=== PATIENT | male | born 1940 | race Caucasian/White ===

== ENCOUNTER 2019-02-26 06:52 | Inpatient (IN) | payer MEDICARE ==
[2019-02-26 07:35] LABS: HEMATOCRIT 36.8 % (37.9-51.0); HEMOGLOBIN 12.6 g/dL (13.5-17.0); MEAN CORPUSCULAR HEMOGLOBIN 30.4 pg (27.0-33.4); MEAN CORPUSCULAR HGB CONC 34.1 g/dL (32.0-36.0); MEAN CORPUSCULAR VOLUME 89 fl (80-97); PLATELET COUNT 201 10^3/uL (150-450); RED BLOOD COUNT 4.13 10^6/uL (4.35-5.55); RED CELL DISTRIBUTION WIDTH 14.9 % (11.5-14.0); WHITE BLOOD COUNT 9.6 10^3/uL (4.0-10.5)
[2019-02-26 07:39] LABS: INTERNATIONAL RATION (INR) 1.06; PROTHROMBIN TIME 13.8 SEC (11.4-15.4)
[2019-02-26 07:41] LABS: ALANINE AMINOTRANSFERASE 40 U/L (21-72); ALBUMIN 3.9 g/dL (3.5-5.0); ALKALINE PHOSPHATASE 148 U/L (38-126); ANION GAP 10 (5-19); ASPARTATE AMINO TRANSFERASE 35 U/L (17-59); BILIRUBIN,DIRECT 0.2 mg/dL (0.0-0.4); BILIRUBIN,TOTAL 0.8 mg/dL (0.2-1.3); BLOOD UREA NITROGEN 27 mg/dL (7-20); CALCIUM 8.9 mg/dL (8.4-10.2); CARBON DIOXIDE 24 mmol/L (22-30); CHLORIDE 110 mmol/L (98-107); CREATINE KINASE 40 U/L (55-170); GLUCOSE 178 mg/dL (75-110); POTASSIUM 4.5 mmol/L (3.6-5.0); TOTAL PROTEIN 6.8 g/dL (6.3-8.2)
[2019-02-26 07:42] LABS: D-DIMER 2.22 ug/mL (0.00-0.50)
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
[2019-02-26 07:53] LABS: ABSOLUTE LYMPHOCYTES# (MANUAL) 0.4 10^3/uL (0.5-4.7); ABSOLUTE MONOCYTES # (MANUAL) 0.2 10^3/uL (0.1-1.4); BASOPHILS % (MANUAL) 1 % (0-2); EOSINOPHILS % (MANUAL) 0 % (0-6); LYMPHOCYTES % (MANUAL) 4 % (13-45); MONOCYTES % (MANUAL) 2 % (3-13); NT PRO BNP 3830 pg/mL (<450); SEGMENTED NEUTROPHILS % (MAN) 93 % (42-78); TOTAL CELLS COUNTED 100; TROPONIN I < 0.012 ng/mL
[2019-02-26 07:54] LABS: ANISOCYTOSIS SLIGHT; OVALOCYTES SLIGHT; PLATELET COMMENT ADEQUATE; POIKILOCYTOSIS 1+; POLYCHROMASIA SLIGHT; TEAR DROP CELLS SLIGHT
[2019-02-26 08:00] LABS: APPEARANCE,URINE CLEAR; BILIRUBIN,URINE NEGATIVE (NEGATIVE); COLOR,URINE YELLOW; GLUCOSE, URINE NEGATIVE (NEGATIVE); KETONES,URINE NEGATIVE (NEGATIVE); LEUKOCYTE ESTERASE,URINE NEGATIVE (NEGATIVE); NITRITE,URINE NEGATIVE (NEGATIVE); PROTEIN,URINE 100 mg/dL (NEGATIVE); URINE SPECIFIC GRAVITY 1.015; UROBILINOGEN,URINE NEGATIVE mg/dL (<2.0)
--- NOTE | 2019-02-26 08:23 | RADIOLOGY REPORT (SQ) ---
EXAM DESCRIPTION: CHEST SINGLE VIEW COMPLETED DATE/TIME: 02/26/2019 7:34 am REASON FOR STUDY: SOB, hypoxia COMPARISON: None. EXAM PARAMETERS: NUMBER OF VIEWS: One view. TECHNIQUE: Single frontal radiographic view of the chest acquired. RADIATION DOSE: NA LIMITATIONS: None. FINDINGS: LUNGS AND PLEURA: Small to moderate left pleural effusion with streaky densities in the l eft lung base. MEDIASTINUM AND HILAR STRUCTURES: No masses. Contour normal. HEART AND VASCULAR STRUCTURES: Heart normal in size. Normal vasculature. BONES: No acute findings. HARDWARE: Sternotomy wires and atrial clip. OTHER: No other significant finding. IMPRESSION: LEFT PLEURAL EFFUSION WITH STREAKY DENSITIES IN THE LEFT LUNG BASE. TECHNICAL DOCUMENTATION: JOB ID: [id number] [employer]- All Rights Reserved Reading location - IP/workstation name: [email or web address]
--- NOTE | 2019-02-26 09:34 | EKG REPORT ---
SEVERITY:- ABNORMAL ECG - SINUS BRADYCARDIA BORDERLINE PROLONGED QT INTERVAL : Confirmed by: Mt Olivia MD 26-Feb-2019 09:33:37
--- NOTE | 2019-02-26 09:42 | RADIOLOGY REPORT (SQ) ---
EXAM DESCRIPTION: CTA CHEST COMPLETED DATE/TIME: 02/26/2019 9:19 am REASON FOR STUDY: Dyspnea, hypoxia, elevated d-dimer COMPARISON: 04/27/2016. TECHNIQUE: CT scan of the chest performed using helical scanning technique with dynamic intravenous contrast injection. Images reviewed with lung, soft tissue and bone windows. Reconstructed coronal and sagittal MPR images reviewed. Additional 3 dimensional post-processing performed to develop Maximal Intensity Projection images ([place] P). All images stored on PACS. All CT scanners at this facility use dose modulation, iterative reconstruction, and/or weight based d osing when appropriate to reduce radiation dose to as low as reasonably achievable (ALARA). [facility]: Dose Right [facility]: CareDose [facility]: Dose Right [facility]: Teradose 4D [facility]: ClaimIt CONTRAST TYPE AND DOSE: contrast/concentration: Isovue 300.00 mg/ml; Total Contrast Delivered: 71.0 ml; Total Saline Delivered: 80.0 ml Contrast bolus adequate for pulmonary arteries and aorta. RENAL FUNCTION: BUN 27 creatinine 1.79. RADIATION DOSE: CT Rad equipment meets quality standard of care and radiation dose reduction techniq ues were employed. CTDIvol: 19.8 - 28.1 mGy. DLP: 1039 mGy-cm. . LIMITATIONS: None. FINDINGS: LUNGS AND PLEURA: Bilateral pleural effusions. Patchy densities in the lower lobes. AORTA AND GREAT VESSELS: No aneurysm. No dissection. HEART: No pericardial effusion. No significant coronary artery calcifications. PULMONARY ARTERIES: No emboli visualized in the main pulmonary arteries or the segmental branches. HILAR AND MEDIASTINAL STRUCTURES: No identified masses or abnormal nodes. HARDWARE: Sternotomy wires and atrial clip. Hardware in the lumbar spine. UPPER ABDOMEN: No significant findings. Limited exam. THYROID AND OTHER SOFT TISSUES: No masses. No adenopathy. BONES: No acute or significant finding. Degenerative changes in the spine. 3D MIPS: Confirm above findings. OTHER: No other significant finding. IMPRESSION: 1. NORMAL CTA OF THE CHEST. NO PULMONARY EMBOLI. 2. BILATERAL PLEURAL EFFUSIONS WITH COMPRESSIVE ATELECTASIS IN THE LUNG BASES. CANNOT EXCLUDE UNDERL DOM[place]O PNEUMONIA COMMENT: Quality ID # [id number]: Final reports with documentation of one or more dose reduction techniques (e.g., Automated exposure control, adjustment of the mA and/or kV according to patient size, use of iterative reconstruction technique) TECHNICAL DOCUMENTATION: JOB ID: [id number] [employer]- All Rights Reserved Reading location - IP/workstation name: [email or web address]
[2019-02-26] MEDS ORDERED: GLUCAGON,HUMAN RECOMB 1 MG INJ IM PRN (11:10)
[2019-02-26] MEDS ORDERED: DEXTROSE 50%-WATER 25 GM/50 ML DISP.SYRIN IV PRN ×2 (11:10)
[2019-02-26] MEDS ORDERED: DEXTROSE 40% GEL 15 GM TUBE PO PRN ×2 (11:10)
[2019-02-26] MEDS ORDERED: ALBUTEROL SULFATE 0.083% NEB 2.5 MG/3 ML AMPUL NEB PRN (11:14)
[2019-02-26] MEDS ORDERED: CEFTRIAXONE 1 GM/D5W RTU 1 GM/50 ML RTUPB IV SCH (11:30)
[2019-02-26] MEDS ORDERED: HYDRALAZINE HCL INJ/PF 20 MG/1 ML SDV IV ONE ×2 (11:30→14:30)
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
--- NOTE | 2019-02-26 11:54 | ADVANCED CARE ---
- Diagnosis (1) Acute respiratory failure with hypoxia Diagnosis Current: Yes (2) Acute exacerbation of congestive heart failure Diagnosis Current: Yes (3) CAD (coronary artery disease) Diagnosis Current: Yes (4) CKD (chronic kidney disease) stage 3, GFR 30-59 ml/min Diagnosis Current: Yes (5) Hypertensive urgency Diagnosis Current: Yes (6) IDDM (insulin dependent diabetes mellitus) Diagnosis Current: Yes (7) Pneumonia Diagnosis Current: Yes Resuscitation Status: Full Code Discussion: Discussed with patient and at bedside. He does express that he prefers chest compressions, defibrillation and mechanical ventilation if the need arises. He says that his , Ced is his surrogate medical decision maker.
[2019-02-26] MEDS: CEFTRIAXONE SODIUM 1,000 MG in DEXTROSE 5%-WATER 50 ML IV SCH (12:01)
[2019-02-26] MEDS: BUMETANIDE 1 MG TABLET PO SCH ×2 (12:01→22:48)
[2019-02-26] MEDS ORDERED: ALBUTEROL SULFATE HFA (90 MCG/PUFF) 200 PUFF/8.5 GM MDI IH PRN (13:22)
[2019-02-26] MEDS ORDERED: ACETAMINOPHEN 325 MG TABLET PO PRN (13:22)
[2019-02-26] MEDS ORDERED: TRAMADOL HCL 50 MG TABLET PO PRN (13:22)
[2019-02-26] MEDS ORDERED: NITROGLYCERIN 0.4 MG/TAB 25 TAB/BOTTLE SL PRN (13:22)
[2019-02-26] MEDS ORDERED: HYDRALAZINE HCL INJ/PF 20 MG/1 ML SDV ONE (13:56)
[2019-02-26] MEDS ORDERED: (PENDING PHARMACY ID) (Mirabegron [Myrbetriq] 50 MG) PO SCH ×2 (14:00→22:00)
[2019-02-26] MEDS ORDERED: (PENDING PHARMACY ID) (Pyridoxine Hcl [Vitamin B-6] 100 MG) PO SCH (14:00)
[2019-02-26] MEDS ORDERED: CLONIDINE HCL 0.1 MG TABLET PO ONE (14:30)
[2019-02-26] MEDS ORDERED: CARVEDILOL 12.5 MG TABLET PO ONE (14:30)
[2019-02-26] MEDS ORDERED: ISOSORBIDE MONONITRATE 60 MG TAB.ER.24H PO ONE (14:30)
[2019-02-26 15:29] LABS: CREATINE KINASE MB 1.19 ng/mL (<4.55)
[2019-02-26 15:32] LABS: TROPONIN I < 0.012 ng/mL
--- NOTE | 2019-02-26 16:04 | EKG REPORT ---
SEVERITY:- ABNORMAL ECG - SINUS OR ECTOPIC ATRIAL TACHYCARDIA NONSPECIFIC REPOL ABNORMALITY, DIFFUSE LEADS PROLONGED QT INTERVAL : Confirmed by: Mt Olivia MD 26-Feb-2019 16:04:23
[2019-02-26] MEDS: POTASSIUM CHLORIDE 10 MEQ CAPSULE.ER PO SCH (17:02)
[2019-02-26] MEDS: INSULIN LISPRO 100 UNIT/ML 3 ML VIAL SUBCUT SCH ×2 (17:02→22:48)
[2019-02-26] MEDS: HYDRALAZINE HCL INJ/PF 20 MG/1 ML SDV IV PRN (20:03)
[2019-02-26] MEDS ORDERED: METOPROLOL TARTRATE PF/INJ 5 MG/5 ML SDV IV ONE (20:51)
[2019-02-26] MEDS ORDERED: NITROGLYCERIN 2% OINTMENT 1 GM PACKET TP ONE (20:52)
[2019-02-26] MEDS ORDERED: MORPHINE SULFATE 10 MG/ML INJ IV PRN (20:52)
[2019-02-26] MEDS ORDERED: NITROGLYCERIN 2% OINTMENT 1 GM PACKET ONE (21:05)
--- NOTE | 2019-02-26 21:24 | EKG REPORT ---
SEVERITY:- ABNORMAL ECG - SINUS RHYTHM REPOL ABNRM SUGGESTS ISCHEMIA, DIFFUSE LEADS BORDERLINE PROLONGED QT INTERVAL : Confirmed by: Mt Olivia MD 26-Feb-2019 21:23:31
[2019-02-26 21:26] LABS: CREATINE KINASE MB 1.13 ng/mL (<4.55)
[2019-02-26 21:29] LABS: TROPONIN I < 0.012 ng/mL
[2019-02-26] MEDS ORDERED: LACTULOSE SYRUP 20 GM/30 ML UDCUP PO ONE (22:45)
[2019-02-26] MEDS: HEPARIN SOD (PORCINE) 5,000 UNIT/ML 1 ML VIAL SUBCUT SCH (22:47)
[2019-02-26] MEDS: TAMSULOSIN HCL 0.4 MG CAP.SR.24H PO SCH (22:49)
[2019-02-26] MEDS: ATORVASTATIN CALCIUM 40 MG TABLET PO SCH (22:49)
[2019-02-26] MEDS: CARVEDILOL 12.5 MG TABLET PO SCH (22:50)
[2019-02-26] MEDS: INSULIN GLARGINE,HUM.REC.ANLOG 1,000 UNIT/10 ML VIAL SUBCUT SCH (22:53)
[2019-02-27 03:26] LABS: CREATINE KINASE MB 1.64 ng/mL (<4.55); TROPONIN I 0.039 ng/mL
[2019-02-27] MEDS: LEVOTHYROXINE SODIUM 0.1 MG TABLET PO SCH (05:52)
[2019-02-27 06:38] LABS: HEMATOCRIT 34.4 % (37.9-51.0); HEMOGLOBIN 11.7 g/dL (13.5-17.0); MEAN CORPUSCULAR HEMOGLOBIN 30.3 pg (27.0-33.4); MEAN CORPUSCULAR VOLUME 89 fl (80-97); PLATELET COUNT 198 10^3/uL (150-450); RED BLOOD COUNT 3.86 10^6/uL (4.35-5.55); RED CELL DISTRIBUTION WIDTH 15.4 % (11.5-14.0); WHITE BLOOD COUNT 11.3 10^3/uL (4.0-10.5)
[2019-02-27 06:59] LABS: ANION GAP 12 (5-19); BLOOD UREA NITROGEN 35 mg/dL (7-20); CALCIUM 8.9 mg/dL (8.4-10.2); CARBON DIOXIDE 19 mmol/L (22-30); CHLORIDE 107 mmol/L (98-107); GLUCOSE 200 mg/dL (75-110); POTASSIUM 4.6 mmol/L (3.6-5.0)
[2019-02-27 07:04] LABS: ABSOLUTE LYMPHOCYTES# (MANUAL) 0.5 10^3/uL (0.5-4.7); ABSOLUTE MONOCYTES # (MANUAL) 0.1 10^3/uL (0.1-1.4); BAND NEUTROPHILS % (MANUAL) 3 % (3-5); BASOPHILS % (MANUAL) 0 % (0-2); EOSINOPHILS % (MANUAL) 0 % (0-6); HYPERSEGMENTED NEUTROPHILS PRESENT; LYMPHOCYTES % (MANUAL) 4 % (13-45); MONOCYTES % (MANUAL) 1 % (3-13); PLATELET COMMENT ADEQUATE; SEGMENTED NEUTROPHILS % (MAN) 92 % (42-78); TOTAL CELLS COUNTED 100
[2019-02-27 07:05] LABS: ANISOCYTOSIS SLIGHT; OVALOCYTES SLIGHT; POIKILOCYTOSIS 1+
[2019-02-27] MEDS: HEPARIN SOD (PORCINE) 5,000 UNIT/ML 1 ML VIAL SUBCUT SCH ×2 (09:41→22:06)
[2019-02-27] MEDS: ESCITALOPRAM OXALATE 10 MG TABLET PO SCH (09:42)
[2019-02-27] MEDS: POTASSIUM CHLORIDE 10 MEQ CAPSULE.ER PO SCH ×2 (09:42→17:25)
[2019-02-27] MEDS: ISOSORBIDE MONONITRATE 60 MG TAB.ER.24H PO SCH (09:43)
[2019-02-27] MEDS: CARVEDILOL 12.5 MG TABLET PO SCH ×2 (09:43→22:05)
[2019-02-27] MEDS: BUMETANIDE 1 MG TABLET PO SCH ×2 (09:43→22:05)
[2019-02-27] MEDS: CHOLECALCIFEROL (D3) 1,000 UNIT (25 MCG) TABLET PO SCH (09:43)
[2019-02-27] MEDS: CLONIDINE HCL 0.1 MG TABLET PO SCH (09:43)
[2019-02-27] MEDS: INSULIN LISPRO 100 UNIT/ML 3 ML VIAL SUBCUT SCH ×4 (09:48→22:07)
[2019-02-27] MEDS: PYRIDOXINE HCL 50 MG TABLET PO SCH (09:55)
[2019-02-27] MEDS ORDERED: (PENDING PHARMACY ID) (Pyridoxine Hcl [Vitamin B-6] 100 MG) PO SCH (10:00)
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
[2019-02-27] MEDS: CEFTRIAXONE SODIUM 1,000 MG in DEXTROSE 5%-WATER 50 ML IV SCH (13:27)
--- NOTE | 2019-02-27 15:58 | RADIOLOGY REPORT (SQ) ---
EXAM DESCRIPTION: CHEST 2 VIEWS COMPLETED DATE/TIME: 02/27/2019 3:40 pm REASON FOR STUDY: lateral decubitus to reassess pl effusions COMPARISON: 02/26/2019. NUMBER OF VIEWS: One view. TECHNIQUE: Right and left side down decubitus chest radiograph. LIMITATIONS: None. FINDINGS: PLEURAL FLUID: Moderate free-flowing bilateral pleural effusions. HARDWARE: Sternotomy wires and left atrial clip. OTHER: No other significant finding. IMPRESSION: MODERATE FREE FLOWING RIGHT AND LEFT PLEURAL EFFUSION. TECHNICAL DOCUMENTATION: JOB ID: [id number] [employer]- All Rights Reserved Reading location - IP/workstation name: [email or web address]
[2019-02-27] MEDS ORDERED: INSULIN GLARGINE,HUM.REC.ANLOG 1,000 UNIT/10 ML VIAL (PYX) SUBCUT ONE (21:54)
[2019-02-27] MEDS: TAMSULOSIN HCL 0.4 MG CAP.SR.24H PO SCH (22:04)
[2019-02-27] MEDS: ATORVASTATIN CALCIUM 40 MG TABLET PO SCH (22:05)
[2019-02-27] MEDS: INSULIN GLARGINE,HUM.REC.ANLOG 1,000 UNIT/10 ML VIAL SUBCUT SCH (22:07)
[2019-02-28] MEDS: LEVOTHYROXINE SODIUM 0.1 MG TABLET PO SCH (06:01)
[2019-02-28 08:02] LABS: ANION GAP 10 (5-19); BLOOD UREA NITROGEN 47 mg/dL (7-20); CALCIUM 8.7 mg/dL (8.4-10.2); CARBON DIOXIDE 23 mmol/L (22-30); CHLORIDE 108 mmol/L (98-107); GLUCOSE 111 mg/dL (75-110); POTASSIUM 4.2 mmol/L (3.6-5.0)
[2019-02-28] MEDS: INSULIN LISPRO 100 UNIT/ML 3 ML VIAL SUBCUT SCH ×4 (08:11→21:37)
[2019-02-28] MEDS: HYDRALAZINE HCL INJ/PF 20 MG/1 ML SDV IV PRN (08:19)
[2019-02-28] MEDS: HEPARIN SOD (PORCINE) 5,000 UNIT/ML 1 ML VIAL SUBCUT SCH ×2 (10:41→21:37)
[2019-02-28] MEDS: CARVEDILOL 12.5 MG TABLET PO SCH ×2 (10:45→21:37)
[2019-02-28] MEDS: CHOLECALCIFEROL (D3) 1,000 UNIT (25 MCG) TABLET PO SCH (10:45)
[2019-02-28] MEDS: POTASSIUM CHLORIDE 10 MEQ CAPSULE.ER PO SCH ×2 (10:46→17:11)
[2019-02-28] MEDS: ESCITALOPRAM OXALATE 10 MG TABLET PO SCH (10:46)
[2019-02-28] MEDS: ISOSORBIDE MONONITRATE 60 MG TAB.ER.24H PO SCH (10:46)
[2019-02-28] MEDS: CLONIDINE HCL 0.1 MG TABLET PO SCH (10:46)
[2019-02-28] MEDS: PYRIDOXINE HCL 50 MG TABLET PO SCH (10:47)
[2019-02-28] MEDS: BUMETANIDE 1 MG TABLET PO SCH ×2 (10:47→21:36)
--- NOTE | 2019-02-28 11:14 | Progress Note Acknowledgement ---
Progress Note Acknowledgement Progess Note Acknowledgement: I, the undersigned member of the medical staff with appropriate privileges and with supervisory authority over [Mukund Rodriguez], a dependent practice allied health professional, acknowledge that I have reviewed the progress notes entered on this patient, and in my professional judgment believe that the assessment made and/or any care evidenced was appropriate
--- NOTE | 2019-02-28 11:20 | PDOC PROGRESS REPORT ---
Subjective Progress Note for:: 02/28/19 Subjective:: No complaints this a.m. Reason For Visit: ACUTE HYPOXIC RESPIRATORY FAILURE,CHF EXACERBATION Physical Exam Vital Signs: Temp Pulse Resp BP Pulse Ox 97.2 F 80 18 160/41 H 97 02/28/19 08:58 02/28/19 08:58 02/28/19 08:58 02/28/19 08:59 02/28/19 08:58 Intake & Output 02/27/19 02/28/19 03/01/19 06:59 06:59 06:59 Intake Total 410 1440 Balance 410 1440 Weight 106.1 kg 105.8 kg General appearance: PRESENT: no acute distress, well-developed, well-nourished Neck exam: ABSENT: carotid bruit, JVD, lymphadenopathy, thyromegaly Respiratory exam: PRESENT: clear to auscultation key, other - Dressing intact on right posterior chest were patient had thoracentesis. ABSENT: rales, rhonchi, wheezes Cardiovascular exam: PRESENT: RRR. ABSENT: diastolic murmur, rubs, systolic murmur Pulses: PRESENT: normal dorsalis pedis pul Vascular exam: PRESENT: normal capillary refill GI/Abdominal exam: PRESENT: normal bowel sounds, soft. ABSENT: distended, guarding, mass, organolmegaly, rebound, tenderness Neurological exam: PRESENT: alert, awake, oriented to person, oriented to place, oriented to time, oriented to situation, CN II-XII grossly intact. ABSENT: motor sensory deficit Psychiatric exam: PRESENT: appropriate affect, normal mood. ABSENT: homicidal ideation, suicidal ideation Skin exam: PRESENT: dry, intact, warm. ABSENT: cyanosis, rash Results Laboratory Results: 02/27/19 06:03 02/28/19 07:28 02/28/19 07:28 Sodium 141.2 Potassium 4.2 Chloride 108 H Carbon Dioxide 23 Anion Gap 10 BUN 47 H Creatinine 2.01 H Est GFR ( Amer) 39 L Est GFR (Non-Af Amer) 32 L Glucose 111 H Calcium 8.7 02/26/19 02/26/19 02/26/19 07:00 07:00 14:50 Creatine Kinase 40 L 38 L CK-MB (CK-2) 0.90 Troponin I < 0.012 NT-Pro-B Natriuret Pep 3830 H 02/26/19 02/26/19 02/26/19 14:50 20:40 20:40 Creatine Kinase 51 L CK-MB (CK-2) 1.19 1.13 Troponin I < 0.012 < 0.012 NT-Pro-B Natriuret Pep 02/27/19 02/27/19 02:50 02:50 Creatine Kinase 71 CK-MB (CK-2) 1.64 Troponin I 0.039 NT-Pro-B Natriuret Pep Impressions: Chest/Abdomen CTA 02/26/19 08:40 IMPRESSION: 1. NORMAL CTA OF THE CHEST. NO PULMONARY EMBOLI. 2. BILATERAL PLEURAL EFFUSIONS WITH COMPRESSIVE ATELECTASIS IN THE LUNG BASES. CANNOT EXCLUDE UNDERLYING PNEUMONIA Assessment and Plan - Diagnosis (1) Acute respiratory failure with hypoxia Is this a current diagnosis for this admission?: Yes Plan: Likely secondary to pneumonia and CHF exacerbation. Weaned off BiPAP overnight. Currently saturating well on nasal cannula 02/28/2019-improved. Patient on 2 L nasal cannula at this time. Will continue BiPAP nightly. Patient did have moderate pleural effusion bilaterally which was tapped this morning. Patient states he is breathing much more easily at this time. Patient also with pneumonia and a CHF exacerbation. (2) Acute exacerbation of congestive heart failure Is this a current diagnosis for this admission?: Yes Plan: As mentioned, patient had prior CHF exacerbations for the last one requiring hospitalization at [facility] in October this year. says that he required thoracentesis for significant pleural effusions. Will request records from [facility] including echo and lab reports. He is on Bumex 3 mg daily at home. The patient has CKD and he did underwent CTA of the chest. Will be cautious with diuresis and will have him on Bumex 1 mg every 12 and will closely monitor renal functions. If hypoxia and the pleural effusions persist, will consider consulting radiology tomorrow for possible thoracentesis. 02/27: Will order a chest x-ray lateral decubitus to reassess pleural effusion. Continue Bumex at 1 mg twice daily. 02/28/2019-patient was This morning for bilateral pleural effusion. Patient's continue Bumex 1 mg p.o. twice daily. We will continue to follow this plan of care until we see changes in creatinine may change plan of care at that time. (3) Pneumonia Qualifiers: Pneumonia type: due to unspecified organism Laterality: bilateral Lung location: lower lobe of lung Qualified Code(s): J18.1 - Lobar pneumonia, unspecified organism Is this a current diagnosis for this admission?: Yes Plan: Patient complains of minimally productive cough. WBC is normal. He did have subjective fever at home and was febrile at 100.2 in the ER. Chest CTA shows lower lobe densities. Continue Rocephin. Sputum culture pending. Continue breathing treatments. 02/28/2019-cultures pending. Patient did come in with a leukocytosis and fever. Continue on Rocephin until cultures return. (4) CKD (chronic kidney disease) stage 3, GFR 30-59 ml/min Is this a current diagnosis for this admission?: Yes Plan: Avoid nephrotoxic agents. Will closely monitor renal functions while on Bumex. 02/28/2019-stable at this time continue to follow daily BMPs as patient is on Bumex. - Time Time Spent with patient: 15-24 minutes - Inpatient Certification Based on my medical assessment, after consideration of the patient's comorbidities, presenting symptoms, or acuity I expect that the services needed warrant INPATIENT care.: Yes I certify that my determination is in accordance with my understanding of Medicare's requirements for reasonable and necessary INPATIENT services [42 CFR 412.3e].: Yes Medical Necessity: Other - Continue IV antibiotics. Await cultures
[2019-02-28 11:40] LABS: FLUID APPEARANCE SLIGHTLY HAZY; FLUID COLOR YELLOW; FLUID SOURCE LUNG; FLUID TYPE PLEURAL; FLUID VISCOSITY LIQUID
[2019-02-28 11:44] LABS: HEMATOCRIT 35.5 % (37.9-51.0); HEMOGLOBIN 11.6 g/dL (13.5-17.0); MEAN CORPUSCULAR HEMOGLOBIN 29.9 pg (27.0-33.4); MEAN CORPUSCULAR HGB CONC 32.6 g/dL (32.0-36.0); MEAN CORPUSCULAR VOLUME 92 fl (80-97); PLATELET COUNT 199 10^3/uL (150-450); RED BLOOD COUNT 3.88 10^6/uL (4.35-5.55); RED CELL DISTRIBUTION WIDTH 15.2 % (11.5-14.0); WHITE BLOOD COUNT 9.2 10^3/uL (4.0-10.5)
--- NOTE | 2019-02-28 11:49 | RADIOLOGY REPORT (SQ) ---
EXAM DESCRIPTION: CHEST SINGLE VIEW COMPLETED DATE/TIME: 02/28/2019 9:53 am REASON FOR STUDY: S/P RT THORACENTESIS COMPARISON: 02/27/2019 NUMBER OF VIEWS: One view. TECHNIQUE: Single frontal radiographic view of the chest acquired. LIMITATIONS: None. FINDINGS: LUNGS AND PLEURA: The patient is status post right thoracentesis. No pneumothorax. Right pleural effusion is significantly smaller in size. Left pleural effusion is stable. MEDIASTINUM AND HILAR STRUCTURES: No masses. Contour normal. HEART AND VASCULAR STRUCTURES: Unchanged. BONES: No acute findings. HARDWARE: Sternotomy wires are in place. OTHER: No other significant finding. IMPRESSION: No pneumothorax following right-sided thoracentesis. TECHNICAL DOCUMENTATION: JOB ID: [id number] [employer]- All Rights Reserved Reading location - IP/workstation name: [email or web address]
[2019-02-28] MEDS: CEFTRIAXONE SODIUM 1,000 MG in DEXTROSE 5%-WATER 50 ML IV SCH (11:59)
--- NOTE | 2019-02-28 12:26 | RADIOLOGY REPORT (SQ) ---
EXAM DESCRIPTION: U/S THORACENTESIS WITH IMAGING COMPLETED DATE/TIME: 02/28/2019 10:43 am REASON FOR STUDY: reassess if effusion if enough to be tapped COMPARISON: Chest x-ray dated 02/27/2019 RADIATION DOSE: None. LIMITATIONS: None. PROCEDURE: Procedure, risks, benefit, and alternative explained to patient who then gave written con sent. The posterior right chest wall was marked using ultrasound guidance. A time-out was called fo r correct marking verification. Chest prepped and draped using sterile technique. Local anesthesia a chieved using 10 ml of 1% lidocaine injection. A 6fr Safe-T- Centesis set was introduced into the [facility] pleural space. Fluid was aspirated. The catheter was removed and the entry site was covered wit h sterile bandage. No immediate complications noted. Images acquired during the procedure were stored on PACS. FINDINGS: ENTRY SITE: posterior right chest. FLUID VOLUME: 100 mL FLUID ANALYSIS: Clear, straw-colored OTHER: Fluid sent to the lab for testing. IMPRESSION: SUCCESSFUL THORACENTESIS USING ULTRASOUND GUIDANCE. COMMENT: Patient medication list reviewed: Yes- Quality ID# [id number]:Eligible professional attests to doc umenting in the medical record they obtained, updated, or reviewed the patient's current medications. TECHNICAL DOCUMENTATION: JOB ID: [id number] [employer]- All Rights Reserved Reading location - IP/workstation name: [email or web address]
--- NOTE | 2019-02-28 16:37 | RADIOLOGY REPORT (SQ) ---
EXAM DESCRIPTION: CHEST SINGLE VIEW COMPLETED DATE/TIME: 02/28/2019 12:09 pm REASON FOR STUDY: S/P RT THORACENTESIS- 2 HR FILM COMPARISON: Earlier the same day. NUMBER OF VIEWS: One view. TECHNIQUE: Single frontal radiographic view of the chest acquired. LIMITATIONS: None. FINDINGS: LUNGS AND PLEURA: No pneumothorax 2 hours following right-sided thoracentesis. Left pleur al effusion is unchanged. MEDIASTINUM AND HILAR STRUCTURES: No masses. Contour normal. HEART AND VASCULAR STRUCTURES: Stable in appearance. BONES: No acute findings. HARDWARE: Unchanged. OTHER: No other significant finding. IMPRESSION: No pneumothorax 2 hours following right-sided thoracentesis. TECHNICAL DOCUMENTATION: JOB ID: [id number] [employer]- All Rights Reserved Reading location - IP/workstation name: [email or web address]
[2019-02-28] MEDS: TAMSULOSIN HCL 0.4 MG CAP.SR.24H PO SCH (21:37)
[2019-02-28] MEDS: ATORVASTATIN CALCIUM 40 MG TABLET PO SCH (21:38)
[2019-02-28] MEDS: INSULIN GLARGINE,HUM.REC.ANLOG 1,000 UNIT/10 ML VIAL SUBCUT SCH (21:38)
[2019-03-01] MEDS: LEVOTHYROXINE SODIUM 0.1 MG TABLET PO SCH (06:07)
[2019-03-01] MEDS: INSULIN LISPRO 100 UNIT/ML 3 ML VIAL SUBCUT SCH ×4 (08:23→22:48)
[2019-03-01] MEDS: HYDRALAZINE HCL INJ/PF 20 MG/1 ML SDV IV PRN ×2 (08:23→23:44)
--- NOTE | 2019-03-01 08:58 | PDOC PROGRESS REPORT ---
Subjective Progress Note for:: 03/01/19 Subjective:: No complaints this a.m. 03/01/2019-no complaints this a.m. Reason For Visit: ACUTE HYPOXIC RESPIRATORY FAILURE,CHF EXACERBATION Physical Exam Vital Signs: Temp Pulse Resp BP Pulse Ox 97.9 F 80 20 203/81 H 93 03/01/19 07:37 03/01/19 07:37 03/01/19 07:37 03/01/19 07:37 03/01/19 07:37 Intake & Output 02/28/19 03/01/19 03/02/19 06:59 06:59 06:59 Intake Total 1440 2074 Balance 1440 2074 Weight 105.8 kg 102.7 kg General appearance: PRESENT: no acute distress, well-developed, well-nourished Head exam: PRESENT: atraumatic, normocephalic Eye exam: PRESENT: conjunctiva pink, EOMI, PERRLA. ABSENT: scleral icterus Ear exam: PRESENT: normal external ear exam Mouth exam: PRESENT: moist, tongue midline Neck exam: ABSENT: carotid bruit, JVD, lymphadenopathy, thyromegaly Respiratory exam: PRESENT: clear to auscultation key. ABSENT: rales, rhonchi, wheezes Cardiovascular exam: PRESENT: RRR. ABSENT: diastolic murmur, rubs, systolic murmur Pulses: PRESENT: normal dorsalis pedis pul Vascular exam: PRESENT: normal capillary refill GI/Abdominal exam: PRESENT: normal bowel sounds, soft. ABSENT: distended, guarding, mass, organolmegaly, rebound, tenderness Rectal exam: PRESENT: deferred Extremities exam: PRESENT: full ROM. ABSENT: calf tenderness, clubbing, pedal edema Neurological exam: PRESENT: alert, awake, oriented to person, oriented to place, oriented to time, oriented to situation, CN II-XII grossly intact. ABSENT: motor sensory deficit Psychiatric exam: PRESENT: appropriate affect, normal mood. ABSENT: homicidal ideation, suicidal ideation Skin exam: PRESENT: dry, intact, warm, other - Dressing on right posterior chest clean dry and intact. ABSENT: cyanosis, rash Results Laboratory Results: 02/28/19 07:28 02/28/19 07:28 02/28/19 02/28/19 07:28 09:23 WBC 9.2 RBC 3.88 L Hgb 11.6 L Hct 35.5 L MCV 92 MCH 29.9 MCHC 32.6 RDW 15.2 H Plt Count 199 Fluid Type PLEURAL Fluid Source LUNG Fluid Color YELLOW Fluid Appearance SLIGHTLY HAZY Fluid Viscosity LIQUID Fluid WBC 690 Fluid RBC 2510 02/26/19 02/26/19 02/26/19 07:00 07:00 14:50 Creatine Kinase 40 L 38 L CK-MB (CK-2) 0.90 Troponin I < 0.012 NT-Pro-B Natriuret Pep 3830 H 02/26/19 02/26/19 02/26/19 14:50 20:40 20:40 Creatine Kinase 51 L CK-MB (CK-2) 1.19 1.13 Troponin I < 0.012 < 0.012 NT-Pro-B Natriuret Pep 02/27/19 02/27/19 02:50 02:50 Creatine Kinase 71 CK-MB (CK-2) 1.64 Troponin I 0.039 NT-Pro-B Natriuret Pep Impressions: Chest/Abdomen CTA 02/26/19 08:40 IMPRESSION: 1. NORMAL CTA OF THE CHEST. NO PULMONARY EMBOLI. 2. BILATERAL PLEURAL EFFUSIONS WITH COMPRESSIVE ATELECTASIS IN THE LUNG BASES. CANNOT EXCLUDE UNDERLYING PNEUMONIA Thoracentesis Ultrasound 02/28/19 00:00 IMPRESSION: SUCCESSFUL THORACENTESIS USING ULTRASOUND GUIDANCE. Chest X-Ray 02/28/19 11:40 IMPRESSION: No pneumothorax 2 hours following right-sided thoracentesis. Assessment and Plan - Diagnosis (1) Acute respiratory failure with hypoxia Is this a current diagnosis for this admission?: Yes Plan: Likely secondary to pneumonia and CHF exacerbation. Weaned off BiPAP overnight. Currently saturating well on nasal cannula 02/28/2019-improved. Patient on 2 L nasal cannula at this time. Will continue BiPAP nightly. Patient did have moderate pleural effusion bilaterally which was tapped this morning. Patient states he is breathing much more easily at this time. Patient also with pneumonia and a CHF exacerbation. 03/01/2019-improved. Patient able to tolerate off nasal cannula at this time. He continues BiPAP nightly. We will continue Bumex 2 mg p.o. twice daily as patient typically takes 3 mg at home. Anticipate discharge home tomorrow. (2) Acute exacerbation of congestive heart failure Is this a current diagnosis for this admission?: Yes Plan: As mentioned, patient had prior CHF exacerbations for the last one requiring hospitalization at [facility] in October this year. says that he required thoracentesis for significant pleural effusions. Will request records from [facility] including echo and lab reports. He is on Bumex 3 mg daily at home. The patient has CKD and he did underwent CTA of the chest. Will be cautious with diuresis and will have him on Bumex 1 mg every 12 and will closely monitor renal functions. If hypoxia and the pleural effusions persist, will consider consulting radiology tomorrow for possible thoracentesis. 02/27: Will order a chest x-ray lateral decubitus to reassess pleural effusion. Continue Bumex at 1 mg twice daily. 02/28/2019-patient was This morning for bilateral pleural effusion. Patient's continue Bumex 1 mg p.o. twice daily. We will continue to follow this plan of care until we see changes in creatinine may change plan of care at that time. 03/01/2019-improved. Continue Bumex. Patient with thoracentesis history taken off 800 mL's. Breathing much easier at this time. Able to tolerate without supplemental oxygen. (3) Pneumonia Qualifiers: Pneumonia type: due to unspecified organism Laterality: bilateral Lung location: lower lobe of lung Qualified Code(s): J18.1 - Lobar pneumonia, unspecified organism Is this a current diagnosis for this admission?: Yes Plan: Patient complains of minimally productive cough. WBC is normal. He did have subjective fever at home and was febrile at 100.2 in the ER. Chest CTA shows lower lobe densities. Continue Rocephin. Sputum culture pending. Continue breathing treatments. 02/28/2019-cultures pending. Patient did come in with a leukocytosis and fever. Continue on Rocephin until cultures return. 03/01/2019-continue to follow cultures. Anticipate discharge home in the a.m. Most likely will not need antibiotic therapy at that time. (4) CKD (chronic kidney disease) stage 3, GFR 30-59 ml/min Is this a current diagnosis for this admission?: Yes Plan: Avoid nephrotoxic agents. Will closely monitor renal functions while on Bumex. 02/28/2019-stable at this time continue to follow daily BMPs as patient is on Bumex. 03/01/2019-stable. Continue Bumex and BMPs. - Time Time Spent with patient: 15-24 minutes - Inpatient Certification Based on my medical assessment, after consideration of the patient's comorbidities, presenting symptoms, or acuity I expect that the services needed warrant INPATIENT care.: Yes I certify that my determination is in accordance with my understanding of Medicare's requirements for reasonable and necessary INPATIENT services [42 CFR 412.3e].: Yes Medical Necessity: Other - IV antibiotics
[2019-03-01] MEDS: POTASSIUM CHLORIDE 10 MEQ CAPSULE.ER PO SCH ×2 (10:17→19:27)
[2019-03-01] MEDS: ISOSORBIDE MONONITRATE 60 MG TAB.ER.24H PO SCH (10:18)
[2019-03-01] MEDS: CLONIDINE HCL 0.1 MG TABLET PO SCH (10:18)
[2019-03-01] MEDS: CARVEDILOL 12.5 MG TABLET PO SCH ×2 (10:18→22:48)
[2019-03-01] MEDS: AMLODIPINE BESYLATE 10 MG TABLET PO SCH (10:18)
[2019-03-01] MEDS: ESCITALOPRAM OXALATE 10 MG TABLET PO SCH (10:19)
[2019-03-01] MEDS: CHOLECALCIFEROL (D3) 1,000 UNIT (25 MCG) TABLET PO SCH (10:20)
[2019-03-01] MEDS: BUMETANIDE 1 MG TABLET PO SCH ×2 (10:21→22:50)
[2019-03-01] MEDS: PYRIDOXINE HCL 50 MG TABLET PO SCH (10:21)
[2019-03-01] MEDS: HEPARIN SOD (PORCINE) 5,000 UNIT/ML 1 ML VIAL SUBCUT SCH ×2 (10:22→22:49)
[2019-03-01 11:09] LABS: ANION GAP 7 (5-19); BLOOD UREA NITROGEN 42 mg/dL (7-20); CALCIUM 8.7 mg/dL (8.4-10.2); CARBON DIOXIDE 26 mmol/L (22-30); CHLORIDE 108 mmol/L (98-107); GLUCOSE 153 mg/dL (75-110); POTASSIUM 3.9 mmol/L (3.6-5.0)
[2019-03-01] MEDS: CEFTRIAXONE SODIUM 1,000 MG in DEXTROSE 5%-WATER 50 ML IV SCH (12:00)
[2019-03-01 12:15] LABS: TOTAL PROTEIN BODY FLUID 1.7 g/dL (.)
[2019-03-01] MEDS: TAMSULOSIN HCL 0.4 MG CAP.SR.24H PO SCH (22:48)
[2019-03-01] MEDS: INSULIN GLARGINE,HUM.REC.ANLOG 1,000 UNIT/10 ML VIAL SUBCUT SCH (22:48)
[2019-03-01] MEDS: ATORVASTATIN CALCIUM 40 MG TABLET PO SCH (22:48)
[2019-03-02] MEDS: LEVOTHYROXINE SODIUM 0.1 MG TABLET PO SCH (06:54)
[2019-03-02] MEDS: INSULIN LISPRO 100 UNIT/ML 3 ML VIAL SUBCUT SCH ×2 (08:20→12:52)
[2019-03-02 08:57] VITALS: BP 180/92
[2019-03-02] MEDS: ISOSORBIDE MONONITRATE 60 MG TAB.ER.24H PO SCH (09:16)
[2019-03-02] MEDS: CARVEDILOL 12.5 MG TABLET PO SCH (09:16)
[2019-03-02] MEDS: AMLODIPINE BESYLATE 10 MG TABLET PO SCH (09:16)
[2019-03-02] MEDS: ESCITALOPRAM OXALATE 10 MG TABLET PO SCH (09:17)
[2019-03-02] MEDS: BUMETANIDE 1 MG TABLET PO SCH (09:18)
[2019-03-02] MEDS: CHOLECALCIFEROL (D3) 1,000 UNIT (25 MCG) TABLET PO SCH (09:19)
[2019-03-02] MEDS: PYRIDOXINE HCL 50 MG TABLET PO SCH (09:19)
[2019-03-02] MEDS: HEPARIN SOD (PORCINE) 5,000 UNIT/ML 1 ML VIAL SUBCUT SCH (09:20)
[2019-03-02 10:27] LABS: ANION GAP 11 (5-19); BLOOD UREA NITROGEN 35 mg/dL (7-20); CARBON DIOXIDE 25 mmol/L (22-30); CHLORIDE 106 mmol/L (98-107); GLUCOSE 218 mg/dL (75-110); POTASSIUM 4.3 mmol/L (3.6-5.0)
--- NOTE | 2019-03-02 11:04 | PDOC DISCHARGE SUMMARY ---
General - Admit/Disc Date/PCP Admission Date/Primary Care Provider: 02/26/19 11:26 EARLENE BRAGG MD Discharge Date: 03/02/19 - Discharge Diagnosis (1) Acute respiratory failure with hypoxia Is this a current diagnosis for this admission?: Yes (2) Acute exacerbation of congestive heart failure Is this a current diagnosis for this admission?: Yes (3) Pneumonia Is this a current diagnosis for this admission?: Yes (4) CKD (chronic kidney disease) stage 3, GFR 30-59 ml/min Is this a current diagnosis for this admission?: Yes - Additional Information Resuscitation Status: Full Code Discharge Diet: As Tolerated Discharge Activity: Activity As Tolerated Prescriptions: Amlodipine Besylate [Norvasc 10 mg Tablet] 10 mg PO DAILY #30 tablet Azithromycin 500 mg PO DAILY #3 tablet Home Medications: Acetaminophen [Tylenol 325 mg Tablet] 650 mg PO Q6HP PRN 02/26/19 Albuterol Sulfate [Proair HFA Inhalation Aerosol 8.5 gm MDI] 2 puff IH Q6HP PRN 02/26/19 Aspirin [Adult Low Dose Aspirin EC] 81 mg PO QHS 02/26/19 Atorvastatin Calcium [Lipitor 40 mg Tablet] 40 mg PO QHS 02/26/19 Bumetanide [Bumex 2 mg Tablet] 3 mg PO DAILY 02/26/19 Carvedilol [Coreg 25 mg Tablet] 25 mg PO Q12 02/26/19 Cholecalciferol (Vitamin D3) [Vitamin D3 1000 Unit Tablet] 1,000 unit PO DAILY 02/26/19 Clonidine HCl [Catapres 0.1 mg Tablet] 0.1 mg PO DAILY 02/26/19 Clopidogrel Bisulfate [Plavix 75 mg Tablet] 75 mg PO DAILY 02/26/19 Escitalopram Oxalate [Lexapro] 20 mg PO DAILY 02/26/19 Ferrous Sulfate [Slow Fe] 142 mg PO DAILY 02/26/19 Glimepiride [Amaryl] 2 mg PO QAM 02/26/19 Insulin Detemir [Levemir] 35 unit SQ QHS 02/26/19 Isosorbide Mononitrate [Imdur 60 mg Tablet.er] 60 mg PO DAILY 02/26/19 Levothyroxine Sodium [Synthroid 0.1 mg Tablet] 0.1 mg PO Q6AM 02/26/19 Liraglutide [Victoza 2-Rich] 1.2 mg SQ DAILY 02/26/19 Mirabegron [Myrbetriq] 50 mg PO QHS 02/26/19 Nitroglycerin [Nitrostat 0.4 mg (1/150 Gr) Tabs 25/Bottle] 1 tab SL Q5MP PRN 02/26/19 Potassium Chloride [Klor-Con 10 Meq Capsule ER] 40 meq PO BID 02/26/19 Pyridoxine HCl [Vitamin B-6] 100 mg PO DAILY 02/26/19 Tamsulosin HCl [Flomax 0.4 mg Cap.sr] 0.4 mg PO QHS 02/26/19 Tramadol HCl [Ultram 50 mg Tablet] 50 mg PO Q8HP PRN 02/26/19 Amlodipine Besylate [Norvasc 10 mg Tablet] 10 mg PO DAILY #30 tablet 03/02/19 Azithromycin 500 mg PO DAILY #3 tablet 03/02/19 Bumetanide [Bumex 1 mg Tablet] 2 mg PO BID tablet 03/02/19 History of Present Illness History of Present Illness: OLIVIA DARBY is a 78 year old male Hospital Course Hospital Course: Mr. Paul is a very pleasant 78-year-old gentleman who presented to the ER with a past medical history of insulin. Diabetes mellitus, congestive heart failure, hypertension, hypothyroidism, history of bladder cancer, mild dementia and atrial ablation for which he been taken off Xarelto prior due to hematuria and subdural bleeds. 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 Patient presented with his was at bedside he states he is apparently fine until the past 2 days when he started developed worsening exertional shortness of breath. Patient's reported patient to gain weight over the last several days and patient does take Bumex daily at home. Patient was seen in [place] in October after he developed significant pleural effusions requiring thoracentesis. Patient was found to have mild bilateral pleural effusions on this admission and did undergo a right sided thoracentesis obtaining 800 mL's of fluid that was sent for cytology and showed no laboratory findings. Patient did report a minimally productive cough the day before and complained of subjective chills and fevers at home with a temperature as well. Patient found to be febrile in the ER at 100.2 was placed on BiPAP and had recovery of oxygen saturation is 97%. Blood pressure on initial finding was 190/96 which he does take multiple blood pressure medications at home. In the ER he did rule out for PE but did show compressive atelectasis bilateral pleural effusions as noted before. Patient was admitted placed on antibiotic therapy for his pneumonia was diuresed aggressively and treated for his hypertensive urgency. At this time patient is improved significantly return home. I have started patient on Norvasc 10 mg p.o. daily addition to other hypertensive medications and at this time his blood pressure is 150/90. Patient will follow up with his primary care practitioner on discharge. Patient is also been educated return to the ER if he had any further complaints or concerns. I will also continue patient on antibiotic therapy for his pneumonia I gave him azithromycin 500 mg p.o. daily x3 days. This will give him a 10-day coverage at the cellular level. Patient will resume all other home medications or treatmen ts at this time. Physical Exam Vital Signs: Temp Pulse Resp BP Pulse Ox 98.0 F 82 16 180/92 H 98 03/02/19 07:50 03/02/19 07:50 03/02/19 07:50 03/02/19 08:00 03/02/19 07:50 Intake & Output 03/01/19 03/02/19 03/03/19 06:59 06:59 06:59 Intake Total 4 1425 Balance 4 1425 Weight 102.7 kg 102 kg General appearance: PRESENT: no acute distress, well-developed, well-nourished Neck exam: ABSENT: carotid bruit, JVD, lymphadenopathy, thyromegaly Respiratory exam: PRESENT: clear to auscultation key. ABSENT: rales, rhonchi, wheezes Cardiovascular exam: PRESENT: RRR. ABSENT: diastolic murmur, rubs, systolic murmur Pulses: PRESENT: normal dorsalis pedis pul Vascular exam: PRESENT: normal capillary refill GI/Abdominal exam: PRESENT: normal bowel sounds, soft. ABSENT: distended, guarding, mass, organolmegaly, rebound, tenderness Extremities exam: PRESENT: full ROM. ABSENT: calf tenderness, clubbing, pedal edema Neurological exam: PRESENT: alert, awake, oriented to person, oriented to place, oriented to time, oriented to situation, CN II-XII grossly intact. ABSENT: motor sensory deficit Psychiatric exam: PRESENT: appropriate affect, normal mood. ABSENT: homicidal ideation, suicidal ideation Skin exam: PRESENT: dry, intact, warm. ABSENT: cyanosis, rash Results Laboratory Results: 02/28/19 07:28 03/02/19 09:19 02/28/19 02/28/19 02/28/19 09:23 09:23 09:23 Sodium Potassium Chloride Carbon Dioxide Anion Gap BUN Creatinine Est GFR ( Amer) Est GFR (Non-Af Amer) Glucose Calcium Fluid Glucose 149 Fluid Total Protein 1.7 Fluid LDH 63 Fluid Amylase 10 03/01/19 03/02/19 10:34 09:19 Sodium 141.1 141.5 Potassium 3.9 4.3 Chloride 108 H 106 Carbon Dioxide 26 25 Anion Gap 7 11 BUN 42 H 35 H Creatinine 1.73 H 1.80 H Est GFR ( Amer) 47 L 45 L Est GFR (Non-Af Amer) 39 L 37 L Glucose 153 H 218 H Calcium 8.7 9.0 Fluid Glucose Fluid Total Protein Fluid LDH Fluid Amylase 02/28/19 09:23 Pleural Fluid - Right Pleural Effusion AFB Smear Concentration - Final 02/28/19 09:23 Pleural Fluid - Right Pleural Effusion Acid Fast Bacilli Smear - Final 02/26/19 07:00 Blood Blood Culture - Final Staphylococcus Hominis 02/26/19 02/26/19 02/26/19 07:00 07:00 14:50 Creatine Kinase 40 L 38 L CK-MB (CK-2) 0.90 Troponin I < 0.012 NT-Pro-B Natriuret Pep 3830 H 02/26/19 02/26/19 02/26/19 14:50 20:40 20:40 Creatine Kinase 51 L CK-MB (CK-2) 1.19 1.13 Troponin I < 0.012 < 0.012 NT-Pro-B Natriuret Pep 02/27/19 02/27/19 02:50 02:50 Creatine Kinase 71 CK-MB (CK-2) 1.64 Troponin I 0.039 NT-Pro-B Natriuret Pep Impressions: Chest/Abdomen CTA 02/26/19 08:40 IMPRESSION: 1. NORMAL CTA OF THE CHEST. NO PULMONARY EMBOLI. 2. BILATERAL PLEURAL EFFUSIONS WITH COMPRESSIVE ATELECTASIS IN THE LUNG BASES. CANNOT EXCLUDE UNDERLYING PNEUMONIA Thoracentesis Ultrasound 02/28/19 00:00 IMPRESSION: SUCCESSFUL THORACENTESIS USING ULTRASOUND GUIDANCE. Chest X-Ray 02/28/19 11:40 IMPRESSION: No pneumothorax 2 hours following right-sided thoracentesis. Qualifiers - * PATIENT BEING DISCHARGED WITH ANY OF THE FOLLOWING DIAGNOSIS: No Acute Heart Failure - Is this a Heart Failure Patient?: Yes Documentation of LVEF assessment?: No, Document reason - Performed at outside facility LVEF < 40%?: No- if no continue to question #3 a) Discharged on ACEI?: No, document contraindications - CKD b) Discharges on ARB?: No-document contraindications - CKD d) Discharged on evidence-based Beta tomer(carvedilol, sustained release metoprolol succinate, or bisoprolol)?: Yes 3. Anticoagulant therapy for permanect/persistent/paraoxysmal Afib or Aflutter: N/A Follow-up Appointment scheduled within 7 days?: Yes Plan Time Spent: Greater than 30 Minutes
[2019-03-02] MEDS: CEFTRIAXONE SODIUM 1,000 MG in DEXTROSE 5%-WATER 50 ML IV SCH (12:15)
[2019-03-02] MEDS: POTASSIUM CHLORIDE 10 MEQ CAPSULE.ER PO SCH (12:58)
[2019-03-02] MEDS: CLONIDINE HCL 0.1 MG TABLET PO SCH (13:02)
== END 2019-03-02 16:30 | disposition home or self-care (01) | DRG 193 ==
LOC: ER 06:52 → EH 11:26 → 3W 13:27
PROVIDERS: ADMIT Internal Medicine; ATTEND Internal Medicine
PROC: 0W993ZX Drainage of Right Pleural Cavity, Percutaneous Approach, Diagnostic (ICD-10-PCS; principal; 2019-02-28)
DX: J18.1 Lobar pneumonia, unspecified organism (principal); J96.01 Acute respiratory failure with hypoxia; J90 Pleural effusion, not elsewhere classified; I13.0 Hypertensive heart and chronic kidney disease with heart failure and stage 1 through stage 4 chronic kidney disease, or unspecified chronic kidney disease; I16.0 Hypertensive urgency; I50.9 Heart failure, unspecified; E11.22 Type 2 diabetes mellitus with diabetic chronic kidney disease; N18.3 Chronic kidney disease, stage 3 (moderate); I48.91 Unspecified atrial fibrillation; E78.00 Pure hypercholesterolemia, unspecified; I25.10 Atherosclerotic heart disease of native coronary artery without angina pectoris
CPT/HCPCS: 32555; 36415; 71045; 71046; 71275; 80048; 80053; 81001; 82150; 82550; 82553; 82945; 82962; 83036; 83605; 83615; 83735; 83880; 84157; 84484; 85025; 85027; 85379; 85610; 87015; 87040; 87070; 87075; 87077; 87116; 87186; 87205; 87206; 88305; 89050; 93005; 93010; 94660; 96374; 99291; J0360; J0696; J1644; J1815; J2270; J3490; J7060